=== PATIENT | male | born 1955 | race Caucasian/White ===

== ENCOUNTER 2019-10-03 09:05 | Outpatient (CLI) | payer OTHER, SELFPAY ==
[2019-10-06 18:52] LABS: H pylori, Urea Breath NOT DETECTED (NOT DETECTED)
== END 2019-10-03 09:06 | disposition home or self-care (01) ==
PROVIDERS: PCP Family Medicine; Visit Provider Family Medicine
DX: K21.9 Gastro-esophageal reflux disease without esophagitis (principal)
CPT/HCPCS: 83013

== ENCOUNTER 2019-11-04 08:57 | Emergency (ER) | payer OTHER, SELFPAY ==
--- NOTE | ~2019-11-04 | CT_ITS ---
EXAMINATION: CT abdomen pelvis wo con DATE: 11/04/2019 09:40 INDICATION: Left flank pain TECHNIQUE: Computed tomography (CT) of the abdomen and pelvis was performed without intravenous contr ast. Automated exposure control and iterative reconstruction technique were employed. The dose-length product was 197.20 mGy-cm. COMPARISON: None FINDINGS: Calcified right lower lobe nodule consistent with old granulomatous disease. Heart size is normal. No pericardial or pleural effusion. There is fluid and debris in the distal esophagus just and gastroes ophageal reflux. Liver, gallbladder, pancreas and bilateral adrenal glands are normal. Splenic calcif ications consistent with old granulomatous disease. Bilateral nephrolithiasis with stones measuring u p to 2-3 mm in the right kidney and 7 stones measuring up to 3-4 mm in the left kidney. There is an o bstructing 4 x 5 x 6 mm stone at the left ureteropelvic junction resulting in mild left hydronephrosi s and perinephric stranding. Partially decompressed bladder is unremarkable. There is prominent colon ic diverticulosis with a sigmoid and descending colon predominance. There is no adjacent inflammatory change to suggest diverticulitis. The appendix is not visualized. No pericecal inflammatory change t o suggest acute appendicitis. No free intraperitoneal gas or fluid. No pathologically enlarged abdomi nal or pelvic lymphadenopathy. There are bridging osteophytes at multiple levels in the spine, consis tent with diffuse idiopathic skeletal hyperostosis (DISH). Right intertrochanteric bone island. IMPRESSION: 1. Bilateral nephrolithiasis with obstructing 4 x 5 x 6 mm stone at the left ureteropelvic junction r esulting in mild hydronephrosis. 2. Diverticulosis. 3. Fluid distending the distal esophagus which could be related to gastroesophageal reflux. Reviewed, dictated and finalized at location A. IMPRESSION: 1. Bilateral nephrolithiasis with obstructing 4 x 5 x 6 mm stone at the left ur eteropelvic junction resulting in mild hydronephrosis. 2. Diverticulosis. 3. Fluid distending the distal esophagus which could be related to gastroesopha geal reflux.
[2019-11-04 09:09] VITALS: BP 135/80; PULSE 86; RESP 18; TEMP 36.5; O2SAT 97
[2019-11-04 09:35] LABS: Basophils Absolute Auto 0.02 K/mm3 (0.00-0.10); Basophils Percent Auto 0.2 % (0.0-1.0); Eosinophils Absolute Auto 0.03 K/mm3 (0.02-0.50); Eosinophils Percent Auto 0.3 % (1.0-6.0); Hematocrit 49.6 % (40.0-54.0); Hemoglobin 16.7 g/dL (14.0-18.0); Immature Granulocyte Absolute 0.05 K/mm3 (0.00-0.00); Immature Granulocyte Percent A 0.5 % (0.0-0.0); Lymphocytes Absolute Auto 1.32 K/mm3 (1.10-4.50); Lymphocytes Percent Auto 12.8 % (18.0-42.0); Mean Corpuscular HGB Conc 33.7 g/dL (32.0-36.0); Mean Platelet Volume 9.7 fl (8.7-11.0); Monocytes Absolute Auto 0.79 K/mm3 (0.10-0.90); Monocytes Percent Auto 7.6 % (2.0-11.0); Neutrophils Absolute Auto 8.1 K/mm3 (1.7-7.2); Neutrophils Percent Auto 78.6 % (50.0-70.0); Platelet Count Result 201 K/mm3 (150-420); Red Blood Count 5.39 M/mm3 (4.70-6.10); Red Cell Distribution Width 13.3 % (11.6-14.4); White Blood Count 10.4 K/mm3 (4.8-10.8)
[2019-11-04] MEDS: SODIUM CHLORIDE 0.9% IV 1,000 ML 999 ML IV CONT (09:35)
[2019-11-04 09:36] LABS: Add Urine Microscopic? YES; Appearance Urine Turbid (Clear); Bilirubin Urine 2+ (Negative); Blood Urine 3+ (Negative); Color Urine Yellow (Yellow); Glucose Urine UA Negative (Negative); Ketones Urine 2+ (Negative); Leukocyte Esterase Ur Negative LEU/UL (Negative); Nitrate Urine Positive (Negative); Protein Urine 1+ (Negative); Specific Grav Ur >= 1.030 (1.010-1.020); pH Urine 5.5 (5.0-8.0)
[2019-11-04] MEDS: ONDANSETRON INJ 4 MG/2 ML VIAL IV PUSH (09:42)
[2019-11-04] MEDS: KETOROLAC 30 MG/ML VIAL (*BKC) IV PUSH (09:43)
[2019-11-04 09:45] LABS: Amorphous Sediment Urine Moderate; Bacteria Urine 4+ /hpf; Calcium Oxalate Crystals Urine Present /hpf; RBC Urine 21-50 /hpf (0-2); Squamous Epithelial Cell Urine None seen /hpf (Few); WBC Urine 0-3 /hpf (0-3)
[2019-11-04 09:47] LABS: Partial Thromboplastin Time 32.3 SEC (22.3-31.6); Prothrombin Time 10.2 Seconds (9.64-11.0)
[2019-11-04 09:50] LABS: Alanine Aminotransferase 32 U/L (16-63); Alkaline Phosphatase 90 U/L (46-116); Anion Gap 12.7 mmol/L (7-16); Aspartate Amino Transferase 15 U/L (15-37); Bilirubin,Total 0.6 mg/dL (0.00-1.00); Blood Urea Nitrogen 12 mg/dL (7-18); Calcium 9.2 mg/dL (8.5-10.1); Carbon Dioxide 29 mmol/L (21-32); Chloride 104 mmol/L (98-108); Estimated CRCL calculation 44 ml/min; Estimated Glomerular Filt Rate 50; Glucose 132 mg/dL (70-99); Lipase 47 U/L (73-393); Osmolality Calculated 295 mOsm/kg (285-295); Potassium 3.7 mmol/L (3.5-5.1); Sodium 142 mmol/L (136-145); Total Protein 7.2 g/dL (6.4-8.2)
--- NOTE | 2019-11-04 10:05 | ED.BACK ---
HPI - Back Pain/Injury General Chief Complaint: Back Pain/Injury Stated Complaint: 63YO male w/ known h.o renal calculi here c/o left flank pain w/ radiation to groin since 10pm last night. Here for eval. Related Data Allergies Allergy/AdvReac Type Severity Reaction Status Date / Time No Known Allergies Allergy Verified 10/19/19 09:31 Review of Systems Review of Systems: All systems reviewed & are unremarkable except as noted in HPI and below Constitutional: Constitutional: Reports as per HPI and Reports no additional constitutional complaints Cardiovascular: Cardiovascular: Reports as per HPI and Reports no additional cardiovascular complaints Respiratory: Respiratory: Reports as per HPI and Reports no additional respiratory complaints Gastrointestinal: Gastrointestinal: Reports as per HPI and Reports no additional gastrointestinal complaints Integumentary/Breasts: Comments: Left Flank Pain Neurologic: Reports system reviewed and no additional complaints, except as documented [facility] Past Medical History Medical History (Updated 11/04/19 @ 10:13 by Daron Dickerson MD) Colon cancer screening Diverticulosis large intestine w/o perforation or abscess w/o bleeding Epigastric pain Functional burping disorder Gastroesophageal reflux disease Nausea No active medical problems Renal calculus or stone Surgical History Surgical History No history of previous surgery Family History Family History Father Diabetes mellitus Malignant neoplasm of prostate Mother Diabetes mellitus Social History Social History Smoking packs per day: 1.5 Smoking cigarettes per day: 30.0 Years smoked: 45 Smoking pack-years: 67.50 Smoking status: Current every day smoker Tobacco type: cigarettes Exam Const: General: no acute distress and alert Orientation/consciousness: patient oriented x3 HENMT: Head: normal to inspection Neck: Neck: normal visual inspection Chest: Chest palpation & inspection: normal inspection of the chest Resp: Effort & Inspection: normal respiratory effort Auscultation: clear to auscultation bilaterally Cardio: Rate: regular rate Rhythm: regular rhythm GI: Auscultation: normal bowel sounds : General: Yes CVA tenderness on the left Skin: General skin exam: normal color Neuro: General: patient oriented x3, moves all extremities and no focal motor deficits Extrem: General: normal to inspection Course Course Emergency Course: Patient admits to improvement in Pain after toradol. HE is comfortable attempting outpt treatment w/ f/u with urology. Vital Signs Vital signs: Vital Signs Temperature 97.7 F 11/04/19 09:09 Pulse Rate 86 11/04/19 09:09 Respiratory Rate 18 11/04/19 09:09 Blood Pressure 135/80 11/04/19 09:09 Pulse Oximetry 97 11/04/19 09:09 Temperature 97.7 F 11/04/19 09:09 Pulse Rate 86 11/04/19 09:09 Respiratory Rate 18 11/04/19 09:09 Blood Pressure 135/80 11/04/19 09:09 Pulse Oximetry 97 11/04/19 09:09 MDM - Back Pain/Injury Differential Diagnosis Differential diagnosis: Likely strain of lumbar region and renal colic Medical Records Attestation: I reviewed the patient's medical records. Lab Data Attestation: I reviewed the patient's lab results. Result diagrams: 11/04/19 09:29 11/04/19 09:29 Labs: Lab Results 11/04/19 11/04/19 11/04/19 Range/Units 09:29 09:29 09:29 WBC 10.4 (4.8-10.8) K/mm3 RBC 5.39 (4.70-6.10) M/mm3 Hgb 16.7 (14.0-18.0) g/dL Hct 49.6 (40.0-54.0) % MCV 92.0 (78.0-102.0) fL MCH 31.0 (27.0-31.0) pg MCHC 33.7 (32.0-36.0) g/dL RDW 13.3 (11.6-14.4) % Plt Count 201 (150-420) K/mm3 MPV 9.7 (8.7-11.0) fl Immature Gran % (Auto) 0.5 H (0.0-0.0)
[2019-11-04] MEDS: TAMSULOSIN HCL 0.4 MG CAPSULE PO (10:19)
[2019-11-04 10:26] VITALS: BP 133/75; PULSE 88; RESP 18; TEMP 36.6; O2SAT 98
== END 2019-11-04 10:35 | disposition home or self-care (01) ==
PROVIDERS: Emergency Provider Family Medicine; PCP Family Medicine
DX: N20.0 Calculus of kidney (principal)
CPT/HCPCS: 36415; 74176; 80053; 81001; 83690; 85025; 85610; 85730; 87086; 87088; 96361; 96374; 96375; 99283; 99284; A9270; J1885; J2405; J7030

== ENCOUNTER 2022-02-25 12:34 | Emergency (ER) | payer OTHER, SELFPAY ==
--- NOTE | ~2022-02-25 | XR_ITS ---
EXAMINATION: XR chest 1V portable DATE: 02/25/2022 12:58 INDICATION: Dyspnea. Cough. Shortness of breath. TECHNIQUE: A single frontal view of the chest was obtained. COMPARISON: CT abdomen and pelvis 11/04/2019 FINDINGS: There are airspace opacities in the lower lung zones, left worse than right. No pleural eff usion or pneumothorax. The heart size is normal. There is a right subclavian port with tip in superio r vena cava. IMPRESSION: 1. Airspace opacities in the lower lung zones, left worse than right, consistent with atelectasis brandie kimi pneumonia. Reviewed, dictated and finalized at location A. IMPRESSION: 1. Airspace opacities in the lower lung zones, left worse than right, consisten t with atelectasis versus pneumonia.
[2022-02-25 12:44] VITALS: BP 127/79; PULSE 78; RESP 16; TEMP 36.4; O2SAT 96
--- NOTE | 2022-02-25 12:44 | ECG_ITS ---
Measurements Intervals [place] Rate: 71 P: 77 MO: 136 QRS: 46 QRSD: 134 T: 47 QT: 390 QTc: 424 Interpretive Statements SINUS RHYTHM INDETERMINATE AXIS RIGHT BUNDLE BRANCH BLOCK ABNORMAL ECG NO PREVIOUS ECG AVAILABLE FOR COMPARISON Electronically Signed On 02-25-2022 16:21:25 CDT by Morales Pedroza M.D.
[2022-02-25 12:49] VITALS: BP 127/79; PULSE 78; RESP 16; TEMP 36.4; O2SAT 96
[2022-02-25 13:08] LABS: Basophils Absolute Auto 0.02 K/mm3 (0.00-0.10); Basophils Percent Auto 0.3 % (0.0-1.0); Eosinophils Absolute Auto 0.05 K/mm3 (0.02-0.50); Eosinophils Percent Auto 0.7 % (1.0-6.0); Hematocrit 35.2 % (37.0-46.0); Hemoglobin 11.2 g/dL (12.4-15.3); Immature Granulocyte Absolute 0.05 K/mm3 (0.00-0.00); Immature Granulocyte Percent A 0.7 % (0.0-0.0); Lymphocytes Absolute Auto 1.65 K/mm3 (1.10-4.50); Lymphocytes Percent Auto 22.1 % (18.0-42.0); Mean Corpuscular HGB Conc 31.8 g/dL (32.0-36.0); Mean Corpuscular Hemoglobin 29.2 pg (27.0-31.0); Mean Corpuscular Volume 91.7 fL (78.0-102.0); Mean Platelet Volume 8.6 fl (8.7-11.0); Monocytes Absolute Auto 1.02 K/mm3 (0.10-0.90); Monocytes Percent Auto 13.7 % (2.0-11.0); Neutrophils Absolute Auto 4.7 K/mm3 (1.7-7.2); Neutrophils Percent Auto 62.5 % (50.0-70.0); Platelet Count Result 348 K/mm3 (150-420); Red Blood Count 3.84 M/mm3 (4.70-6.10); Red Cell Distribution Width 14.5 % (11.6-14.4); White Blood Count 7.5 K/mm3 (4.8-10.8)
[2022-02-25 13:36] LABS: Alanine Aminotransferase 18 U/L (16-63); Albumin Level 2.6 g/dL (3.4-5.0); Alkaline Phosphatase 101 U/L (46-116); Anion Gap 6 mmol/L (8-16); Aspartate Amino Transferase 10 U/L (15-37); Bilirubin,Total 0.2 mg/dL (0.00-1.00); Blood Urea Nitrogen 15 mg/dL (7-18); Calcium 8.5 mg/dL (8.5-10.1); Carbon Dioxide 30 mmol/L (21-32); Chloride 104 mmol/L (98-108); Estimated CRCL calculation 63 ml/min; Estimated Glomerular Filt Rate > 60; Glucose 90 mg/dL (70-99); NT Pro B Type Natriuretic Pept 551 pg/mL (0-125); Osmolality Calculated 290 mOsm/kg (285-295); Potassium 3.5 mmol/L (3.5-5.1); Sodium 140 mmol/L (136-145); Total Protein 6.8 g/dL (6.4-8.2)
[2022-02-25 13:37] LABS: Troponin I 10.4 ng/L (0.00-60.4)
[2022-02-25 13:41] LABS: Influenza A QL RT-PCR Negative (Negative); Influenza B QL RT-PCR Negative (Negative); SARS-CoV-2 RNA PCR Negative (Negative)
--- NOTE | 2022-02-25 13:51 | ED.GENADULT ---
HPI - General Adult General Chief complaint: Upper Respiratory Infection Stated complaint: congestion/runny nose/ possible pneumonia Time Seen by Provider: 02/25/22 12:37 History of Present Illness HPI narrative: Edd is a 66M with a PMH of GERD, diverticulosis and stomach cancer s/p surgery and currently undergoing chemo that presented to the ER feeling run down. For the last few days he has been fatigued, had body aches, sleepy, had a cough and some SOB. There has been no CP, or lightheadedness. His last chemo was 2 weeks ago. Related Data Home Medications Medication Instructions Recorded Confirmed gabapentin 100 mg capsule 100 mg PO TID 02/25/22 02/25/22 Allergies Allergy/AdvReac Type Severity Reaction Status Date / Time No Known Allergies Allergy Verified 02/25/22 12:53 Review of Systems Review of Systems: All systems reviewed & are unremarkable except as noted in HPI and below PMFSH Past Medical History Medical History Colon cancer screening Diverticulosis large intestine w/o perforation or abscess w/o bleeding Epigastric pain Functional burping disorder Gastroesophageal reflux disease Nausea No active medical problems Renal calculus or stone Surgical History Surgical History No history of previous surgery Family History Family History Father Diabetes mellitus Malignant neoplasm of prostate Mother Diabetes mellitus Social History Social History Smoking packs per day: 1.5 Smoking cigarettes per day: 30.0 Years smoked: 45 Smoking pack-years: 67.50 Smoking status: Current every day smoker Tobacco type: cigarettes Exam Const: General: healthy appearing and no acute distress Nutritional Appearance: well nourished Orientation/consciousness: patient oriented x3 HENMT: Head: normal to inspection Ears: external ears normal Face/Nose/Sinus: Normal external nose present Face and sinus: normal facial exam Eyes: Conjunctivae: conjunctivae normal Neck: Neck: normal visual inspection Chest: Chest palpation & inspection: normal inspection of the chest Resp: Effort & Inspection: normal respiratory effort Other: Bibasilar crackles Cardio: Rate: regular rate Rhythm: regular rhythm GI: GI Palp: Yes Soft to palpation, No Tenderness to palpation present (GI) and No Guarding due to palpation present (GI) Back/Spine/Pelvis: Back: no CVA tenderness Skin: General skin exam: normal color Neuro: General: patient oriented x3 and moves all extremities Cranial nerves: Yes Nystagmus not present Psych: Mental Status: mental status grossly normal Affect: normal affect Course Vital Signs Vital signs: Vital Signs Temperature 97.6 F 02/25/22 12:44 Pulse Rate 78 02/25/22 12:44 Respiratory Rate 16 02/25/22 12:44 Blood Pressure 127/79 02/25/22 12:44 Pulse Oximetry 96 02/25/22 12:44 Oxygen Delivery Room Air 02/25/22 12:44 Temperature 97.6 F 02/25/22 12:49 Pulse Rate 78 02/25/22 12:49 Respiratory Rate 16 02/25/22 12:49 Blood Pressure 127/79 02/25/22 12:49 Pulse Oximetry 96 02/25/22 12:49 Oxygen Delivery Room Air 02/25/22 12:49 Medical Decision Making Vital Signs Vital Signs: Vital Signs Temperature 97.6 F 02/25/22 12:44 Pulse Rate 78 02/25/22 12:44 Respiratory Rate 16 02/25/22 12:44 Blood Pressure 127/79 02/25/22 12:44 Pulse Oximetry 96 02/25/22 12:44 Oxygen Delivery Room Air 02/25/22 12:44 Temperature 97.6 F 02/25/22 12:49 Pulse Rate 78 02/25/22 12:49 Respiratory Rate 16 02/25/22 12:49 Blood Pressure 127/79 02/25/22 12:49 Pulse Oximetry 96 02/25/22 12:49 Oxygen Delivery Room Air 02/25/22 12:49 Lab Data Result diagrams: 02/25/22 13:03
[2022-02-25] MEDS: levoFLOXacin TAB 500 MG, levoFLOXacin TAB 250 MG 750 MG PO (14:03)
[2022-02-25 14:21] VITALS: BP 120/82; PULSE 59; RESP 16; TEMP 36.4; O2SAT 94
== END 2022-02-25 14:22 | disposition home or self-care (01) ==
PROVIDERS: Emergency Provider Family Medicine
DX: J18.9 Pneumonia, unspecified organism (principal); Z20.822 Contact with and (suspected) exposure to COVID-19; R06.02 Shortness of breath
CPT/HCPCS: 36415; 71045; 80053; 83880; 84484; 85025; 87502; 93005; 99284; A9270; U0003; U0005

== ENCOUNTER 2022-03-23 02:52 | Emergency (ER) | payer OTHER, SELFPAY ==
--- NOTE | ~2022-03-23 | XR_ITS ---
EXAMINATION: XR chest 2V DATE: 03/23/2022 03:27 INDICATION: Right back pain. Cough. TECHNIQUE: Frontal and lateral views of the chest were obtained. COMPARISON: Chest single view 02/25/22, CT abdomen and pelvis 11/04/2019 FINDINGS: There are mild airspace opacities in right mid and upper lung zones. No pleural effusion or pneumothorax. The heart size is normal. There is a right subclavian port with tip in superior vena c berta. IMPRESSION: 1. Mild airspace opacities in right mid and upper lung zones, consistent with atelectasis/scarring ve rsus pneumonia. Reviewed, dictated and finalized at location A. [employer] IMPRESSION: 1. Mild airspace opacities in right mid and upper lung zones, consistent with a telectasis/scarring versus pneumonia.
[2022-03-23 02:52] VITALS: BP 130/72; PULSE 71; RESP 16; TEMP 36.2; O2SAT 100
--- NOTE | 2022-03-23 03:00 | PC.NURSE ---
ERP phoned to update on new pt. ERP orders CBC, CMP, CRP, and Mg lab tests. ERP also orders a 2V Chest X-ray. RN verbally confirms the orders and orders are placed.
[2022-03-23 03:20] LABS: Hematocrit 34.3 % (37.0-46.0); Mean Corpuscular HGB Conc 32.1 g/dL (32.0-36.0); Mean Corpuscular Hemoglobin 29.4 pg (27.0-31.0); Mean Corpuscular Volume 91.7 fL (78.0-102.0); Mean Platelet Volume 8.4 fl (8.7-11.0); Platelet Count Result 256 K/mm3 (150-420); Red Blood Count 3.74 M/mm3 (4.70-6.10); White Blood Count 7.2 K/mm3 (4.8-10.8)
[2022-03-23 03:42] LABS: Alanine Aminotransferase 24 U/L (16-63); Albumin Level 2.9 g/dL (3.4-5.0); Alkaline Phosphatase 136 U/L (46-116); Anion Gap 2 mmol/L (8-16); Aspartate Amino Transferase 17 U/L (15-37); Bilirubin,Total 0.2 mg/dL (0.00-1.00); Blood Urea Nitrogen 15 mg/dL (7-18); Calcium 8.2 mg/dL (8.5-10.1); Carbon Dioxide 32 mmol/L (21-32); Chloride 104 mmol/L (98-108); Estimated CRCL calculation 73 ml/min; Estimated Glomerular Filt Rate > 60; Glucose 111 mg/dL (70-99); Magnesium 1.8 mg/dL (1.8-2.4); Osmolality Calculated 287 mOsm/kg (285-295); Potassium 3.6 mmol/L (3.5-5.1); Sodium 138 mmol/L (136-145)
[2022-03-23 03:45] LABS: CRP 5.7 mg/dL (0.0-0.9)
--- NOTE | 2022-03-23 03:52 | ED.GENADULT ---
HPI - General Adult General Chief complaint: Unspecified Stated complaint: Sick Related Data Home Medications Medication Instructions Recorded Confirmed gabapentin 100 mg capsule 100 mg PO TID 02/25/22 03/23/22 Allergies Allergy/AdvReac Type Severity Reaction Status Date / Time No Known Allergies Allergy Verified 03/23/22 02:57 [facility] Past Medical History Medical History Colon cancer screening Diverticulosis large intestine w/o perforation or abscess w/o bleeding Epigastric pain Functional burping disorder Gastroesophageal reflux disease Nausea No active medical problems Renal calculus or stone Surgical History Surgical History No history of previous surgery Family History Family History Father Diabetes mellitus Malignant neoplasm of prostate Mother Diabetes mellitus Social History Social History Smoking packs per day: 1.5 Smoking cigarettes per day: 30.0 Years smoked: 45 Smoking pack-years: 67.50 Smoking status: Current every day smoker Tobacco type: cigarettes Course Vital Signs Vital signs: Vital Signs Temperature 36.2 C L 03/23/22 02:52 Pulse Rate 71 03/23/22 02:52 Respiratory Rate 16 03/23/22 02:52 Blood Pressure 130/72 03/23/22 02:52 Pulse Oximetry 100 03/23/22 02:52 Oxygen Delivery Room Air 03/23/22 02:52 Temperature 36.2 C L 03/23/22 02:52 Pulse Rate 71 03/23/22 02:52 Respiratory Rate 16 03/23/22 02:52 Blood Pressure 130/72 03/23/22 02:52 Pulse Oximetry 100 03/23/22 02:52 Oxygen Delivery Room Air 03/23/22 02:52 Medical Decision Making Vital Signs Vital Signs: Vital Signs Temperature 36.2 C L 03/23/22 02:52 Pulse Rate 71 03/23/22 02:52 Respiratory Rate 16 03/23/22 02:52 Blood Pressure 130/72 03/23/22 02:52 Pulse Oximetry 100 03/23/22 02:52 Oxygen Delivery Room Air 03/23/22 02:52 Temperature 36.2 C L 03/23/22 02:52 Pulse Rate 71 03/23/22 02:52 Respiratory Rate 16 03/23/22 02:52 Blood Pressure 130/72 03/23/22 02:52 Pulse Oximetry 100 03/23/22 02:52 Oxygen Delivery Room Air 03/23/22 02:52 Lab Data Result diagrams: 03/23/22 03:13 03/23/22 03:13 Labs: Lab Results 03/23/22 03/23/22 03/23/22 Range/Units 03:13 03:13 03:13 WBC 7.2 (4.8-10.8) K/mm3 RBC 3.74 L (4.70-6.10) M/mm3 Hgb 11.0 L (12.4-15.3) g/dL Hct 34.3 L (37.0-46.0) % MCV 91.7 (78.0-102.0) fL MCH 29.4 (27.0-31.0) pg MCHC 32.1 (32.0-36.0) g/dL RDW 16.0 H (11.6-14.4) % Plt Count 256 (150-420) K/mm3 MPV 8.4 L (8.7-11.0) fl Sodium 138 (136-145) mmol/L Potassium 3.6 (3.5-5.1) mmol/L Chloride 104 (98-108) mmol/L Carbon Dioxide 32 (21-32) mmol/L Anion Gap 2 L (8-16) mmol/L BUN 15 (7-18) mg/dL Creatinine 0.71 (0.70-1.30) mg/dL Estim Creat Clear Calc 73 ml/min Estimated GFR > 60 (59 - ) Glucose 111 H (70-99) mg/dL Calculated Osmolality 287 (285-295) mOsm/kg Calcium 8.2 L (8.5-10.1) mg/dL Magnesium 1.8 (1.8-2.4) mg/dL Total Bilirubin 0.2 (0.00-1.00) mg/dL AST 17 (15-37) U/L ALT 24 (16-63) U/L Alkaline Phosphatase 136 H (46-116) U/L C-Reactive Protein 5.7 H (0.0-0.9) mg/dL Total Protein 6.0 L (6.4-8.2) g/dL Albumin 2.9 L (3.4-5.0) g/dL Discharge Plan Discharge Prescriptions: No Action hydrocodone-acetaminophen [[place]] 5-325 mg tablet 1 tablet PO Q6H PRN (Reason: pain) Qty: 20 0RF gabapentin 100 mg Capsule 100 mg PO TID Follow-up/Referrals: UNKNOWN,DOCTOR [Primary Care Provider] -
--- NOTE | 2022-03-23 04:05 | ED.URI ---
HPI - URI/Sore Throat General Chief Complaint: Unspecified Stated Complaint: Sick Time Seen by Provider: 03/23/22 04:00 Source: patient and RN notes reviewed Mode of arrival: ambulatory Limitations: no limitations History of Present Illness HPI Narrative: patient states he woke up about 2 hours prior to arrival and was having some bilateral back pain similar to when he had a pneumonia here 3 weeks ago. He says he has had mild cough and having little bit of phlegm. He denies any fever but is having some chills. Says the phlegm is clear. Denies any difficulty breathing denies any chest pain. He says when he got his antibiotic last time he was here it cleared up the similar back pain right away. MD elicited complaint: cough Onset (ago): hour(s) (2) Consistency: constant Severity: moderate Description of mucous: clear Able to tolerate fluids by mouth: Yes Exacerbating factors: nothing Relieving factors: nothing Associated symptoms: chills and other (thoracic back pain) Treatments prior to arrival: none Related Data Home Medications Medication Instructions Recorded Confirmed gabapentin 100 mg capsule 100 mg PO TID 02/25/22 03/28/22 Allergies Allergy/AdvReac Type Severity Reaction Status Date / Time No Known Allergies Allergy Verified 03/28/22 08:08 Review of Systems Review of Systems: All systems reviewed & are unremarkable except as noted in HPI and below Constitutional: Constitutional: Denies fever(s) Cardiovascular: Cardiovascular: Denies chest pain Respiratory: Respiratory: Denies dyspnea [facility] Past Medical History Medical History (Updated 03/29/22 @ 00:00 by Ngoc Poole) Colon cancer screening Diverticulosis large intestine w/o perforation or abscess w/o bleeding Epigastric pain Functional burping disorder Gastroesophageal reflux disease 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 mellitus Malignant neoplasm of prostate Mother Diabetes mellitus Social History Social History Smoking packs per day: 1.5 Smoking cigarettes per day: 30.0 Years smoked: 45 Smoking pack-years: 67.50 Smoking status: Current every day smoker Tobacco type: cigarettes Exam Const: General: healthy appearing, no acute distress and alert Nutritional Appearance: well nourished and thin Orientation/consciousness: patient oriented x3 Limitations: no limitations HENMT: Head: normal to inspection Ears: external ears normal Eyes: Conjunctivae: conjunctivae normal Pupils: Equal, round and reactive pupils present EOM: EOMs intact bilaterally Neck: Neck: normal visual inspection Resp: Effort & Inspection: normal respiratory effort Auscultation: clear to auscultation bilaterally, no rales, no rhonchi and no wheezes Cardio: Rate: regular rate Rhythm: regular rhythm GI: GI Palp: Yes Soft to palpation and No Tenderness to palpation present (GI) Auscultation: normal bowel sounds Back/Spine/Pelvis: Cervical Spine: cervical ROM normal Thoracic/Lumbar Spine: thoraco-lumbar ROM normal and No thoracic spinal tenderness Skin: General skin exam: normal color Rashes: no rashes Neuro: General: patient oriented x3, moves all extremities, no focal motor deficits and CN's II-XI intact bilaterally Speech: normal speech Gait exam (Neuro): Normal gait present Extrem: General: normal to inspection and no clubbing, cyanosis or edema Psych: Mental Status: mental status grossly normal Affect: normal affect Attitude: cooperative Course Vital Signs Vital signs: Vital Signs Temperature 36.2 C L 03/23/22 02:52 Pulse Rate 71 11
[2022-03-23 06:38] VITALS: BP 110/60; PULSE 86; RESP 16; TEMP 36.9; O2SAT 97
== END 2022-03-23 06:51 | disposition home or self-care (01) ==
PROVIDERS: Emergency Provider Emergency Medicine
DX: J18.9 Pneumonia, unspecified organism (principal); F17.200 Nicotine dependence, unspecified, uncomplicated; K21.9 Gastro-esophageal reflux disease without esophagitis
CPT/HCPCS: 36415; 71046; 80053; 83735; 85027; 86140; 99283

== ENCOUNTER 2022-03-28 07:54 | Emergency (ER) | payer OTHER, SELFPAY ==
--- NOTE | ~2022-03-28 | CT_ITS ---
EXAMINATION: CT diagnostic chest wo con DATE: 03/28/2022 08:41 INDICATION: Chest pain under ribs. TECHNIQUE: Computed tomography (CT) of the chest was performed without intravenous contrast. Automate d exposure control and iterative reconstruction technique were employed. Exam dose: 162.11 mGy-cm to carol exam DLP. COMPARISON: 03/23/2022 PA and lateral chest FINDINGS: Right Port-A-Cath catheter. Moderately prominent emphysematous changes of the lungs. There is an 8 x 11.9 mm moderately thick-walled cavitary lesion in the posterior right apical region. There is focal infiltrate or atelectasis in the dependent aspect of the right upper lobe. There is mild patchy left lower lobe infiltrate. Normal heart size. No thoracic aortic aneurysm. No hilar or mediastinal mass lesion or lymphadenopath y is detected. Old pulmonary granulomatous disease is noted on the right. Multiple calcified splenic granulomas are noted as well. Mild sliding hiatal hernia. Postoperative change of the stomach. Bilateral nephrolithiasis. Diffuse idiopathic skeletal hyperostosis of the thoracic spine. Degenerative changes of the cervical and lumbar spine. No suspicious osteolytic or osteoblastic lesions. IMPRESSION: 8 x 11.9 mm cavitary lesion in the posterior right apical area; differential diagnosis i ncludes infection, metastatic or primary lung cancer Emphysema Mild infiltrate or atelectasis, dependent right upper lobe and left lower lobe Right Port-A-Cath catheter Reviewed, dictated and finalized at [facility]. Reviewed, dictated and finalized at [facility]. ER JOINER IMPRESSION: 8 x 11.9 mm cavitary lesion in the posterior right apical area; di fferential diagnosis includes infection, metastatic or primary lung cancer Emphysema Mild infiltrate or atelectasis, dependent right upper lobe and left lower lobe Right Port-A-Cath catheter
[2022-03-28 08:02] VITALS: BP 128/64; PULSE 94; RESP 16; TEMP 36.7; O2SAT 99
--- NOTE | 2022-03-28 08:12 | ECG_ITS ---
Measurements Intervals [place] Rate: 76 P: 83 RI: 140 QRS: -12 QRSD: 134 T: 25 QT: 396 QTc: 447 Interpretive Statements SINUS RHYTHM VENTRICULAR PREMATURE COMPLEX RIGHT BUNDLE BRANCH BLOCK BASELINE ARTIFACT- I, III, AVR, AVL, AVF, V1-V6 ABNORMAL ECG COMPARED TO ECG 02/25/2022 13:03:43 NO SIGNIFICANT CHANGES Electronically Signed On 03-28-2022 10:03:22 [facility] by Amilcar Garcia D.O.
[2022-03-28] MEDS: ONDANSETRON HCL ODT 4 MG TABLET PO (08:20)
[2022-03-28] MEDS: ASPIRIN 325 MG ENTERIC TABLET PO (08:21)
[2022-03-28] MEDS: MORPHINE SULFATE (*CRX) 4 MG/ML INJ IM (08:21)
[2022-03-28 08:33] LABS: Basophils Absolute Auto 0.03 K/mm3 (0.00-0.10); Basophils Percent Auto 0.3 % (0.0-1.0); Eosinophils Absolute Auto 0.05 K/mm3 (0.02-0.50); Eosinophils Percent Auto 0.6 % (1.0-6.0); Hematocrit 34.7 % (37.0-46.0); Hemoglobin 10.6 g/dL (12.4-15.3); Immature Granulocyte Absolute 0.02 K/mm3 (0.00-0.00); Immature Granulocyte Percent A 0.2 % (0.0-0.0); Lymphocytes Absolute Auto 1.68 K/mm3 (1.10-4.50); Lymphocytes Percent Auto 19.4 % (18.0-42.0); Mean Corpuscular HGB Conc 30.5 g/dL (32.0-36.0); Mean Corpuscular Volume 95.1 fL (78.0-102.0); Mean Platelet Volume 8.5 fl (8.7-11.0); Monocytes Percent Auto 10.4 % (2.0-11.0); Neutrophils Percent Auto 69.1 % (50.0-70.0); Platelet Count Result 291 K/mm3 (150-420); Red Blood Count 3.65 M/mm3 (4.70-6.10); Red Cell Distribution Width 15.9 % (11.6-14.4); White Blood Count 8.7 K/mm3 (4.8-10.8)
[2022-03-28 08:51] LABS: Alanine Aminotransferase 29 U/L (16-63); Albumin Level 2.9 g/dL (3.4-5.0); Alkaline Phosphatase 157 U/L (46-116); Anion Gap 7 mmol/L (8-16); Aspartate Amino Transferase 25 U/L (15-37); Bilirubin,Total 0.3 mg/dL (0.00-1.00); Blood Urea Nitrogen 15 mg/dL (7-18); Calcium 8.6 mg/dL (8.5-10.1); Carbon Dioxide 29 mmol/L (21-32); Chloride 105 mmol/L (98-108); Estimated Glomerular Filt Rate > 60; Glucose 135 mg/dL (70-99); Osmolality Calculated 294 mOsm/kg (285-295); Potassium 3.6 mmol/L (3.5-5.1); Sodium 141 mmol/L (136-145); Total Protein 6.2 g/dL (6.4-8.2); Troponin I 11.1 ng/L (0.00-60.4)
[2022-03-28 08:53] LABS: Lactic Acid Reflex 1.5 mmol/L (0.4-2.0)
--- NOTE | 2022-03-28 09:37 | ED.GENADULT ---
HPI - General Adult General Chief complaint: Unspecified Stated complaint: Rib pain Time Seen by Provider: 03/28/22 07:57 Source: patient and RN notes reviewed Mode of arrival: ambulatory Limitations: no limitations History of Present Illness complaint: right and left lateral ribs painful Onset (ago): day(s) (3) Location: chest Radiation: non-radiation Severity: moderate Severity scale (1-10): 7 Quality: aching Pain Consistency: constant Exacerbating factors: movement Associated symptoms: cough Treatments prior to arrival: none Related Data Home Medications Medication Instructions Recorded Confirmed gabapentin 100 mg capsule 100 mg PO TID 02/25/22 03/28/22 Allergies Allergy/AdvReac Type Severity Reaction Status Date / Time No Known Allergies Allergy Verified 03/28/22 08:08 Review of Systems Review of Systems: All systems reviewed & are unremarkable except as noted in HPI and below Constitutional: Constitutional: Reports no additional constitutional complaints Eyes: Eyes: Reports no additional eye complaints ENT: Reports system reviewed and no additional complaints, except as documented Cardiovascular: Cardiovascular: Reports no additional cardiovascular complaints Respiratory: Respiratory: Reports no additional respiratory complaints Gastrointestinal: Gastrointestinal: Reports no additional gastrointestinal complaints Musculoskeletal: Musculoskeletal: Reports no additional musculoskeletal complaints Integumentary/Breasts: Skin/Breast: Reports system reviewed and no additional complaints, except as docu Neurologic: Reports system reviewed and no additional complaints, except as documented Psychiatric: Psychiatric: Reports no additional psychiatric complaints Endocrine: Endocrine: Reports no additional endocrine complaints Hematologic/Lymphatic: Hematologic/Lymphatic: Reports no additional hematologic/lymphatic complaints Allergic/Immunologic: Allergic/Immunologic: Reports no additional allergic/immunologic complaints ON LICENSE OF [facility] Past Medical History Medical History Colon cancer screening Diverticulosis large intestine w/o perforation or abscess w/o bleeding Epigastric pain Functional burping disorder Gastroesophageal reflux disease 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 mellitus Malignant neoplasm of prostate Mother Diabetes mellitus Social History Social History Smoking packs per day: 1.5 Smoking cigarettes per day: 30.0 Years smoked: 45 Smoking pack-years: 67.50 Smoking status: Current every day smoker Tobacco type: cigarettes Exam Const: General: no acute distress and well nourished Nutritional Appearance: well nourished Orientation/consciousness: patient oriented x3 Limitations: no limitations HENMT: Head: normal to inspection Ears: external ears normal, TM's normal bilaterally and EAC's normal Face/Nose/Sinus: Normal external nose present, Normal nares present, normal facial exam and sinuses nontender Face and sinus: normal facial exam and sinuses nontender Mouth: Yes Normal oral and palatal mucosa present and Yes moist mucous membranes Teeth and gingiva: dentition normal Throat: posterior oropharynx normal Eyes: Conjunctivae: conjunctivae normal Pupils: Equal, round and reactive pupils present EOM: EOMs intact bilaterally Neck: Neck: normal visual inspection, no lymphadenopathy and no meningeal signs Chest: Chest palpation & inspection: normal inspection of the chest Resp: Effort & Inspection: normal respiratory effort
[2022-03-28 10:06] VITALS: BP 134/70; PULSE 78; RESP 16; TEMP 36.7; O2SAT 100
--- NOTE | 2022-03-28 10:09 | PC.NURSE ---
patient provided printed prescription for tramadol to take with him to pharmacy of choosing.
== END 2022-03-28 10:10 | disposition home or self-care (01) ==
PROVIDERS: Emergency Provider Emergency Medicine
DX: R09.1 Pleurisy (principal); R91.1 Solitary pulmonary nodule; J18.9 Pneumonia, unspecified organism; F17.200 Nicotine dependence, unspecified, uncomplicated
CPT/HCPCS: 36415; 71250; 80053; 83605; 84484; 85025; 93005; 96372; 99284; A9270; J2270

== ENCOUNTER 2022-07-18 12:51 | Emergency (ER) | payer MEDICARE, OTHER, SELFPAY ==
--- NOTE | ~2022-07-18 | CT_ITS ---
EXAMINATION: CTA chest PE protocol DATE: 07/18/2022 14:24 INDICATION: Dyspnea with elevated D-dimer TECHNIQUE: Computed tomography angiography (CTA) of the chest was performed with 100 mL Omnipaque-350 intravenous contrast timed to evaluate the pulmonary arteries. Coronal maximum intensity projection 3D-reconstructions were created by the technologist. The dose-length product (DLP) was 168.37 mGy-cm. Automated exposure control and iterative reconstruction technique were employed. COMPARISON: CT chest 03/28/2022. CT abdomen pelvis 11/04/2019. FINDINGS: Implanted right chest port, terminating at the cavoatrial junction. Lung parenchyma and airways: Worsened subsegmental sized area of cystic atelectasis and severe bronch ial wall thickening in the right upper lung. Severe emphysematous change. Peripheral tree-in-bud and reticular opacities bilaterally, slightly improved. Biapical pleural thickening.. Pleura: Unremarkable. Thoracic inlet, axillae and chest wall: Diffuse subcutaneous edema. Mild cachexia that. Thoracic aorta: Normal. Mediastinum: Hiatal hernia. Sutures at the GE junction. Heart and pericardium: Normal. Coronary artery calcifications: Mild. Upper abdomen: Portal versus biliary dilation. Extensive periportal edema. Mesenteric edema. Small vo lume ascites. Bones: No acute osseous finding. Pulmonary arteries: Study quality: Adequate. No pulmonary emboli detected. IMPRESSION: 1. No CT evidence of acute pulmonary embolus. Tree-in-bud opacities as can be seen with atypical infe ction, ABPA, airways disease, and aspiration. Right upper lobe focus of presumably chronic infectiou s/inflammatory bronchial wall thickening and cystic bronchiectasis. Severe emphysematous change. 2. Possible cirrhosis/portal hypertension with severe periportal edema. Intra and extrahepatic bile d uct dilation. Significant subcutaneous and mesenteric edema. Reviewed, dictated and finalized at location [facility]. IMPRESSION: 1. No CT evidence of acute pulmonary embolus. Tree-in-bud opacities as can be s een with atypical infection, ABPA, airways disease, and aspiration. Right uppe r lobe focus of presumably chronic infectious/inflammatory bronchial wall thick ening and cystic bronchiectasis. Severe emphysematous change. 2. Possible cirrhosis/portal hypertension with severe periportal edema. Intra a nd extrahepatic bile duct dilation. Significant subcutaneous and mesenteric kel ma.
--- NOTE | ~2022-07-18 | XR_ITS ---
XR chest 2V 07/18/2022 13:41 Indication: Bilateral chest wall pain Procedure: 2 view chest Comparison: 03/23/2022 Findings: Heart size normal. The lungs are hyperinflated which is consistent with, but not diagnostic of chronic obstructive pulmonary disease. No focal air space disease, pulmonary edema, pleural effus ion or suspected pneumothorax. There is focal asymmetry at the right apex. Cannot exclude underlying mass. Impression: 1: Focal asymmetry at the right apex. Cannot exclude underlying apical mass. Reviewed, dictated and finalized at location [facility]. Impression: 1: Focal asymmetry at the right apex. Cannot exclude underlying apical mass.
[2022-07-18 12:52] VITALS: BP 147/83; PULSE 68; RESP 19; TEMP 36.3; O2SAT 100
--- NOTE | 2022-07-18 13:03 | ECG_ITS ---
Measurements Intervals Antonito Rate: 62 P: 83 CT: 136 QRS: 39 QRSD: 143 T: 64 QT: 439 QTc: 448 Interpretive Statements SINUS RHYTHM ATRIAL PREMATURE COMPLEX RIGHT BUNDLE BRANCH BLOCK BASELINE ARTIFACT- I, III, AVL, V3-V4 ABNORMAL ECG COMPARED TO ECG 03/28/2022 08:57:01 NO SIGNIFICANT CHANGES Electronically Signed On 07-18-2022 21:48:45 CDT by Amilcar Garcia D.O.
[2022-07-18 13:09] VITALS: O2SAT 100
[2022-07-18] MEDS: SODIUM CHLORIDE 0.9% IV 1,000 ML 999 ML IV CONT (13:25)
[2022-07-18] MEDS: KETOROLAC 30 MG/ML VIAL (*BKC) IV PUSH (13:26)
[2022-07-18 13:27] LABS: Basophils Absolute Auto 0.03 K/mm3 (0.00-0.10); Basophils Percent Auto 0.4 % (0.0-1.0); Eosinophils Absolute Auto 0.04 K/mm3 (0.02-0.50); Eosinophils Percent Auto 0.5 % (1.0-6.0); Hematocrit 34.8 % (37.0-46.0); Hemoglobin 11.3 g/dL (12.4-15.3); Immature Granulocyte Absolute 0.07 K/mm3 (0.00-0.00); Immature Granulocyte Percent A 0.8 % (0.0-0.0); Lymphocytes Absolute Auto 1.85 K/mm3 (1.10-4.50); Mean Corpuscular HGB Conc 32.5 g/dL (32.0-36.0); Mean Corpuscular Hemoglobin 29.4 pg (27.0-31.0); Mean Corpuscular Volume 90.6 fL (78.0-102.0); Mean Platelet Volume 9.5 fl (8.7-11.0); Monocytes Absolute Auto 0.71 K/mm3 (0.10-0.90); Monocytes Percent Auto 8.5 % (2.0-11.0); Neutrophils Absolute Auto 5.7 K/mm3 (1.7-7.2); Neutrophils Percent Auto 67.8 % (50.0-70.0); Platelet Count Result 219 K/mm3 (150-420); Red Blood Count 3.84 M/mm3 (4.70-6.10); Red Cell Distribution Width 16.9 % (11.6-14.4); White Blood Count 8.4 K/mm3 (4.8-10.8)
[2022-07-18 13:42] LABS: INR 0.9; Partial Thromboplastin Time 29.1 SEC (23.90-30.70); Prothrombin Time 10.3 Seconds (9.50-12.10)
[2022-07-18 13:44] LABS: D Dimer 0.72 mg/L (0.19-0.50)
--- NOTE | 2022-07-18 13:44 | PC.NURSE ---
elevated d-dimer at 0.72, erp is notified.
[2022-07-18 13:49] LABS: Alanine Aminotransferase 26 U/L (16-63); Albumin Level 2.3 g/dL (3.4-5.0); Alkaline Phosphatase 236 U/L (46-116); Anion Gap 5 mmol/L (8-16); Aspartate Amino Transferase 21 U/L (15-37); Bilirubin,Total 0.4 mg/dL (0.00-1.00); Blood Urea Nitrogen 11 mg/dL (7-18); Carbon Dioxide 31 mmol/L (21-32); Chloride 102 mmol/L (98-108); Estimated CRCL calculation 75 ml/min; Estimated Glomerular Filt Rate > 60; Glucose 125 mg/dL (70-99); Lactic Acid Reflex 1.3 mmol/L (0.4-2.0); Magnesium 1.8 mg/dL (1.8-2.4); NT Pro B Type Natriuretic Pept 2405 pg/mL (0-125); Osmolality Calculated 286 mOsm/kg (285-295); Potassium 3.1 mmol/L (3.5-5.1); Sodium 138 mmol/L (136-145); Total Protein 5.6 g/dL (6.4-8.2); Troponin I 10.4 ng/L (0.00-60.4)
[2022-07-18 14:03] LABS: Influenza A QL RT-PCR Negative (Negative); Influenza B QL RT-PCR Negative (Negative); SARS-CoV-2 RNA PCR Negative (Negative)
--- NOTE | 2022-07-18 14:13 | ED.URI ---
HPI - URI/Sore Throat General Chief Complaint: Upper Respiratory Infection Stated Complaint: left side pain Time Seen by Provider: 07/18/22 12:56 Source: patient Mode of arrival: ambulatory Limitations: no limitations History of Present Illness HPI Narrative: this is a 66-year-old gentleman with a history of esophageal and stomach cancer with some And metastatic areas on the liver and spine sees Oncology and has received chemotherapy is last chemo was a few days ago and subsequently developed some pain with deep inspiration on the left side of his chest with a mild nonproductive cough denies any shortness of breath no abdominal pain no nausea vomiting no fever chills. Patient denies having COPD but is a long-time smoker. MD elicited complaint: cough Onset (ago): day(s) Consistency: constant Severity: moderate Related Data Home Medications Medication Instructions Recorded Confirmed gabapentin 100 mg capsule 100 mg PO TID 02/25/22 07/18/22 Allergies Allergy/AdvReac Type Severity Reaction Status Date / Time No Known Allergies Allergy Verified 07/18/22 13:10 Review of Systems Review of Systems: All systems reviewed & are unremarkable except as noted in HPI and below PMFSH Past Medical History Medical History Colon cancer screening Diverticulosis large intestine w/o perforation or abscess w/o bleeding Epigastric pain Functional burping disorder Gastroesophageal reflux disease 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 mellitus Malignant neoplasm of prostate Mother Diabetes mellitus Social History Social History Smoking packs per day: 1.5 Smoking cigarettes per day: 30.0 Years smoked: 45 Smoking pack-years: 67.50 Smoking status: Current every day smoker Tobacco type: cigarettes Living arrangements: alone Exam Const: General: healthy appearing Nutritional Appearance: well nourished Orientation/consciousness: patient oriented x3 Limitations: no limitations HENMT: Head: normal to inspection Ears: external ears normal Face and sinus: normal facial exam Mouth: Yes Normal oral and palatal mucosa present Eyes: Conjunctivae: conjunctivae normal Pupils: Equal, round and reactive pupils present EOM: EOMs intact bilaterally Neck: Neck: normal visual inspection Chest: Chest palpation & inspection: normal inspection of the chest Resp: Effort & Inspection: normal respiratory effort Cardio: Rate: regular rate Rhythm: regular rhythm GI: GI Palp: Yes Soft to palpation Auscultation: normal bowel sounds : General: Yes bladder normal to palpation Urinary Catheter: Urinary Catheter: patent and draining Back/Spine/Pelvis: Back: no CVA tenderness Skin: General skin exam: normal color Rashes: no rashes Neuro: General: patient oriented x3 and moves all extremities Extrem: General: normal to inspection Psych: Mental Status: mental status grossly normal Affect: normal affect Course Course Emergency Course: patient received IV Toradol IV fluids and x-ray performed the chest and had an elevated D-dimer and CTA was performed Vital Signs Vital signs: Vital Signs Temperature 36.3 C L 07/18/22 12:52 Pulse Rate 68 07/18/22 12:52 Respiratory Rate 19 07/18/22 12:52 Blood Pressure 147/83 H 07/18/22 12:52 Pulse Oximetry 100 07/18/22 12:52 Oxygen Delivery Room Air 07/18/22 12:52 Temperature 36.3 C L 07/18/22 12:52 Pulse Rate 68 07/18/22 12:52 Respiratory Rate 19 07/18/22 12:52 Blood Pressure 147/83 H 07/18/22 12:52 Puls
[2022-07-18 14:15] LABS: RSV RNA, RT-PCR Negative (Negative)
--- NOTE | 2022-07-18 15:27 | PC.NURSE ---
1515 PT FELL IN HALLWAY GOING TO BATHROOM STATES HIS LEFT LEG GIVES HIM TROUBLE PT STATES HE DID NOT HIT HEAD AND NOTHING HURT PT GOT UP WITH HELP OF NURSE AND TECH PT WALKED TO BATHROOM AND BACK TO HIS ROOM WITH NO COMPLAINTS PT DISCHARGED HOME
[2022-07-18 15:40] VITALS: BP 129/69; PULSE 64; RESP 18; TEMP 37; O2SAT 99
--- NOTE | 2022-07-21 09:27 | PC.NURSE ---
PRELIMINARY BLOOD CULTURE X1 AEROBIC BOTTLE : GRAM POSITIVE COCCI IN CLUSTER ISOLATED. PER DR ROTHMAN, TO AWAIT SENSITIVITIES, PT WAS ALREADY CONTACTED AND REPORTED HE WAS DOING WELL AND IS TAKING AZITHROMYCIN.
== END 2022-07-18 15:40 | disposition home or self-care (01) ==
PROVIDERS: Emergency Provider Emergency Medicine
DX: J40 Bronchitis, not specified as acute or chronic (principal); I50.9 Heart failure, unspecified; J43.8 Other emphysema; C16.9 Malignant neoplasm of stomach, unspecified; C78.7 Secondary malignant neoplasm of liver and intrahepatic bile duct; F17.210 Nicotine dependence, cigarettes, uncomplicated; Z20.822 Contact with and (suspected) exposure to COVID-19
CPT/HCPCS: 36415; 71046; 71275; 80053; 83605; 83735; 83880; 84484; 85025; 85380; 85610; 85730; 87040; 87147; 87637; 93005; 96360; 96372; 99284; J1885; J7030; Q9967

== ENCOUNTER 2022-07-24 08:30 | Emergency (ER) | payer MEDICARE, OTHER, SELFPAY ==
--- NOTE | ~2022-07-24 | XR_ITS ---
EXAMINATION: XR chest 1V portable, XR thoracic spine 2V DATE: 07/24/2022 09:46 INDICATION: Left paraspinal posterior left chest pain. TECHNIQUE: 1. Single PA view of the chest was obtained. 2. AP, lateral and lateral swimmer's views of the thoracic spine were obtained. COMPARISON: Chest CT dated 07/18/2022 FINDINGS: Chest: Hyperexpansion of lungs consistent with moderate emphysema better appreciated on prior CT. Opacities in the right upper lobe superimposed over the anterior first rib corresponding to thick-walled cavita ry lung disease on prior CT which has significantly progressed since 07/18/2022 and 03/28/2022, more r apidly than would be seen with malignancy and most likely infectious in etiology. Additional mild opa cities along the cephalad aspect of the right major fissure and also evident on the most recent prior CT which could represent either atelectasis or additional infection. Left lung remains clear. No pul monary edema, pleural effusion or pneumothorax. The cardiomediastinal silhouette is normal. Right sub clavian central venous port catheter with distal tip near the superior cavoatrial junction. Thoracic spine: Alignment is normal. Vertebral body heights disc heights are normal. There are bridging osteophytes a t multiple levels in the thoracic spine consistent with diffuse idiopathic skeletal hyperostosis (DIS H). IMPRESSION: 1. Emphysema with thick-walled cavitary lung disease at the right apex most likely infectious in etio logy given the rapid progression in the 4 month interval between the [address] studies. 2. Bridging osteophytes throughout much of the thoracic spine consistent with diffuse idiopathic skel etal hyperostosis (DISH). Reviewed, dictated and finalized at location A. IMPRESSION: 1. Emphysema with thick-walled cavitary lung disease at the right apex most lik melissa infectious in etiology given the rapid progression in the 4 month interval between the [address] studies. 2. Bridging osteophytes throughout much of the thoracic spine consistent with d iffuse idiopathic skeletal hyperostosis (DISH).
[2022-07-24 08:30] VITALS: BP 158/73; PULSE 67; RESP 18; TEMP 35.7; O2SAT 99
[2022-07-24 08:41] VITALS: BP 158/73; PULSE 67; RESP 18; TEMP 35.7; O2SAT 99
--- NOTE | 2022-07-24 08:57 | ED.BACK ---
HPI - Back Pain/Injury General Chief Complaint: Back Pain/Injury Stated Complaint: back pain Time Seen by Provider: 07/24/22 08:49 Source: patient Mode of arrival: ambulatory History of Present Illness HPI Narrative: 66-year-old male, smoker with a history of GERD, gastric cancer with Mets to the liver, spine on chemo, status post gastrectomy, kidney stones, diverticulosis, lung lesions presented to the ER on 07/18/2022 for left pleuritic chest pain. The patient had a chest x-ray and a CTA which was negative for PE and did not show any other findings. The patient was noted to have bronchitis and treated with antibiotics and steroids. The patient presents today with -- severe pain in the left thoracic paraspinal region. Pain is made worse by movement and by deep breathing. The patient does not have any fever. Minimal cough with sputum production. No history of trauma. No pain is noted in the lumbar or cervical region. The patient has had a history of recurrent kidney stones. MD elicited complaint: back pain Onset (ago): day(s) ( Off and on for the past 10 days.) Timing: intermittent Severity: severe Similar Symptoms Previously: Yes Quality: aching Location: thoracic spine Radiation: none Exacerbating factors: movement and deep breaths Relieving factors: immobilization Associated symptoms: denies other symptoms Treatments prior to arrival: other medications Related Data Home Medications Medication Instructions Recorded Confirmed gabapentin 100 mg capsule 100 mg PO TID 02/25/22 07/24/22 Allergies Allergy/AdvReac Type Severity Reaction Status Date / Time No Known Allergies Allergy Verified 07/24/22 08:40 Review of Systems Review of Systems: All systems reviewed & are unremarkable except as noted in HPI and below Constitutional: Constitutional: Reports as per HPI, Reports no additional constitutional complaints and Reports weakness Eyes: Eyes: Reports as per HPI and Reports no additional eye complaints ENT: Reports system reviewed and no additional complaints, except as documented and Reports as per HPI Cardiovascular: Cardiovascular: Reports as per HPI and Reports no additional cardiovascular complaints Respiratory: Respiratory: Reports as per HPI and Reports no additional respiratory complaints Gastrointestinal: Gastrointestinal: Reports as per HPI and Reports no additional gastrointestinal complaints Genitourinary: Genitourinary: Reports no additional male genitourinary complaints and Reports as per HPI Musculoskeletal: Musculoskeletal: Reports no additional musculoskeletal complaints, Reports as per HPI and Reports back pain Integumentary/Breasts: Skin/Breast: Reports system reviewed and no additional complaints, except as docu and Reports as per HPI Neurologic: Reports system reviewed and no additional complaints, except as documented and Reports as per HPI Psychiatric: Psychiatric: Reports no additional psychiatric complaints and Reports as per HPI Endocrine: Endocrine: Reports no additional endocrine complaints and Reports as per HPI Hematologic/Lymphatic: Hematologic/Lymphatic: Reports no additional hematologic/lymphatic complaints and Reports as per HPI Allergic/Immunologic: Allergic/Immunologic: Reports no additional allergic/immunologic complaints and Reports as per HPI [facility] Past Medical History Medical History Colon cancer screening Diverticulosis large intestine w/o perforation or abscess w/o bleeding Epigastric pain Functional burping disorder Gastroesophageal reflux disease 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
[2022-07-24] MEDS: ONDANSETRON HCL ODT 4 MG TABLET PO (09:44)
[2022-07-24] MEDS: HYDROmorphone HCL INJ (*CRX) 2 MG/ML VIAL 0.5 MG IM (09:45)
[2022-07-24 10:01] LABS: Appearance Urine Clear (Clear); Bilirubin Urine Negative (Negative); Blood Urine Negative (Negative); Color Urine Yellow (Yellow); Glucose Urine UA Negative (Negative); Ketones Urine Negative (Negative); Leukocyte Esterase Ur Negative (Negative); Nitrate Urine Negative (Negative); Protein Urine Negative (Negative); Urobilinogen Urine 0.2 mg/dL (0.2-1.0)
[2022-07-24 10:02] LABS: Add Urine Microscopic? NO
[2022-07-24 10:39] VITALS: BP 161/81; PULSE 59; RESP 16; TEMP 36.6; O2SAT 100
== END 2022-07-24 10:42 | disposition home or self-care (01) ==
PROVIDERS: Emergency Provider Internal Medicine Critical Care Medicine
DX: M48.14 Ankylosing hyperostosis [Forestier], thoracic region (principal); J98.4 Other disorders of lung; C16.9 Malignant neoplasm of stomach, unspecified; C78.7 Secondary malignant neoplasm of liver and intrahepatic bile duct; F17.210 Nicotine dependence, cigarettes, uncomplicated
CPT/HCPCS: 71045; 72070; 81003; 96372; 99283; A9270; J1170

== ENCOUNTER 2022-08-07 13:20 | Emergency (ER) | payer OTHER, MEDICARE, SELFPAY ==
--- NOTE | ~2022-08-07 | CT_ITS ---
EXAMINATION: CT thoracic lumbar wo con DATE: 08/07/2022 14:29 INDICATION: Mid to low back pain. TECHNIQUE: Computed tomography (CT) of the thoracic and lumbar spine was performed without intravenou s contrast. Automated exposure control and iterative reconstruction technique were employed. The dose -length product was 320.76 mGy-cm. COMPARISON: Chest CT 07/18/2022, CT abdomen and pelvis 11/04/2019 FINDINGS: CT THORACIC SPINE: There is moderate emphysema. There is scarring in the upper lobes, right worse th an left. There is a right subclavian port with tip in proximal right atrium. There are surgical sandoval es in the stomach. There is a small sliding hiatal hernia. There are stones in the kidneys measuring up to 5 mm on the left. Bone alignment is normal. There is mild chronic anterior wedging of T6, T11, and T12 vertebral bodies. Intervertebral disc heights are normal. There are endplate osteophytes at m any levels. There is multilevel mild facet joint osteoarthritis. No neural foraminal stenosis or cent ral canal stenosis. CT LUMBAR SPINE: There is 3 degrees levocurvature of lumbar spine. Vertebral body heights are normal. There is sclerosis in L2 vertebral body. There is a benign bone island in right ilium. Intervertebra l disc heights are normal. The following disc levels are specifically discussed: L1-L2: The disc does not extend beyond the endplate margin. There is mild bilateral facet joint osteo arthritis. There is no neural foraminal stenosis. There is no central canal stenosis. L2-L3: The disc is bulging. There is mild bilateral facet joint osteoarthritis. There is mild bilater al neural foraminal stenosis. There is no central canal stenosis. L3-L4: The disc is bulging. There is mild bilateral facet joint osteoarthritis. There is moderate rig ht and mild left neural foraminal stenosis. There is mild central canal stenosis. L4-L5: The disc is bulging. There is severe right and mild left facet joint osteoarthritis. There is moderate bilateral neural foraminal stenosis. There is mild central canal stenosis. L5-S1: The disc is bulging. There is moderate bilateral facet joint osteoarthritis. There is moderate bilateral neural foraminal stenosis. There is mild central canal stenosis. IMPRESSION: 1. Sclerosis in L2 vertebral body, consistent with metastatic disease. 2. Mild thoracic spondylosis and moderate lumbar spondylosis. Reviewed, dictated and finalized at location A.
[2022-08-07 13:20] VITALS: BP 138/88; PULSE 70; RESP 15; TEMP 36.2; O2SAT 100
--- NOTE | 2022-08-07 13:37 | ED.GENADULT ---
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 He has known metastases to the liver and spine reportedly, and possibly also to the lung. He is currently on chemotherapy, last chemotherapy session was July 13, 2022. Chemotherapy started March 2021. His chemotherapy most recently has been held pending a left lung biopsy which is due to be done in 3 days time, on 08/10/2022 in [place]. He is also due to undergo chemotherapy that day. He is on morphine MS Contin twice daily but has run out and has not been taking any morphine for the last 3 days. He has had weight loss, 10 lb in the last 3 weeks, 60 lb in the last 6 months. Only medication that he has tried to take is Tylenol ibuprofen and his gabapentin that he has. He was seen here 07/24/2022 for similar mid thoracic pain, x-rays were done that did not reveal any acute findings, see report below. A previous visit with a CT angiogram is also listed below. He comes due to continued pain in the mid aspect of his thoracic spine, right more than left, radiating throughout that area. The pain is constant. Able to ambulate but uses a cane. No chest pain. No abdominal pain. No nausea vomiting. No fevers or chills. No urinary symptoms. No other complaints. Related Data Home Medications Medication Instructions Recorded Confirmed gabapentin 100 mg capsule 100 mg PO TID 02/25/22 08/07/22 Allergies Allergy/AdvReac Type Severity Reaction Status Date / Time No Known Allergies Allergy Verified 07/24/22 08:40 Review of Systems Review of Systems: All systems reviewed & are unremarkable except as noted in HPI and below Constitutional: Constitutional: Reports as per HPI, Reports no additional constitutional complaints, Denies chills, Denies excessive sweating, Denies fatigue, Denies fever(s), Denies headache(s) and Reports weakness ( Overall weakness) Eyes: Eyes: Reports as per HPI, Reports no additional eye complaints, Denies change in vision and Denies photophobia ENT: Reports system reviewed and no additional complaints, except as documented, Reports as per HPI, Denies dysphagia, Denies vertigo, Denies dizziness, Denies headache(s), Denies lip swelling, Denies nasal congestion, Denies sore throat, Denies throat swelling and Denies tongue swelling Cardiovascular: Cardiovascular: Reports as per HPI, Reports no additional cardiovascular complaints, Denies chest pain, Denies syncope, Denies rapid heart rate and Denies dyspnea Respiratory: Respiratory: Reports as per HPI, Reports no additional respiratory complaints, Denies chest congestion, Denies cough, Denies dyspnea and Denies wheezing Gastrointestinal: Gastrointestinal: Reports as per HPI, Reports no additional gastrointestinal complaints, Denies abdominal pain, Denies constipation, Denies dysphagia, Denies diarrhea, Reports nausea (with dry heaves) and Denies vomiting Genitourinary: Genitourinary: Reports as per HPI, Denies hematuria, Denies oliguria, Denies dysuria, Denies urinary frequency, Denies urinary incontinence and Denies urinary urgency Musculoskeletal: Musculoskeletal: Reports no additional musculoskeletal complaints, Reports back pain ( the midthoracic region of the upper back, not lower back), Denies myalgias, Denies arthralgias, Denies joint swelling and Denies numbness Integumentary/Breasts: Skin/Breast: Reports system reviewed and no additional complaints, except as docu, Denies pruritus, Denies erythema, Denies rash and Denies skin ulcer Neurologic: Reports system reviewed and no additional complaints, except as documented, Reports as per HPI, Denies confusion, Denies vertigo, Denies dizziness, Denies syncope, Denies
[2022-08-07 14:08] LABS: Basophils Absolute Auto 0.03 K/mm3 (0.00-0.10); Basophils Percent Auto 0.4 % (0.0-1.0); Eosinophils Absolute Auto 0.06 K/mm3 (0.02-0.50); Eosinophils Percent Auto 0.7 % (1.0-6.0); Hematocrit 33.9 % (37.0-46.0); Immature Granulocyte Absolute 0.03 K/mm3 (0.00-0.00); Immature Granulocyte Percent A 0.4 % (0.0-0.0); Lymphocytes Absolute Auto 1.95 K/mm3 (1.10-4.50); Lymphocytes Percent Auto 24.3 % (18.0-42.0); Mean Corpuscular HGB Conc 32.4 g/dL (32.0-36.0); Mean Corpuscular Hemoglobin 29.7 pg (27.0-31.0); Mean Corpuscular Volume 91.6 fL (78.0-102.0); Mean Platelet Volume 8.7 fl (8.7-11.0); Monocytes Absolute Auto 0.75 K/mm3 (0.10-0.90); Monocytes Percent Auto 9.4 % (2.0-11.0); Neutrophils Absolute Auto 5.2 K/mm3 (1.7-7.2); Neutrophils Percent Auto 64.8 % (50.0-70.0); Platelet Count Result 240 K/mm3 (150-420); Red Cell Distribution Width 16.5 % (11.6-14.4)
[2022-08-07] MEDS: MORPHINE SULFATE (*CRX) 15 MG TABCR PO (14:08)
[2022-08-07] MEDS: MORPHINE SULFATE (*CRX) 4 MG/ML INJ IV PUSH (14:09)
[2022-08-07 14:22] LABS: INR 0.9; Partial Thromboplastin Time 31.6 SEC (23.90-30.70); Prothrombin Time 10.2 Seconds (9.50-12.10)
[2022-08-07] MEDS: ONDANSETRON INJ 4 MG/2 ML VIAL IV PUSH (14:31)
[2022-08-07 14:37] LABS: Alanine Aminotransferase 113 U/L (16-63); Albumin Level 2.3 g/dL (3.4-5.0); Alkaline Phosphatase 743 U/L (46-116); Anion Gap 5 mmol/L (8-16); Aspartate Amino Transferase 106 U/L (15-37); Bilirubin,Total 0.4 mg/dL (0.00-1.00); Blood Urea Nitrogen 12 mg/dL (7-18); Calcium 8.2 mg/dL (8.5-10.1); Carbon Dioxide 30 mmol/L (21-32); Chloride 106 mmol/L (98-108); Estimated CRCL calculation 83 ml/min; Estimated Glomerular Filt Rate > 60; Glucose 90 mg/dL (70-99); Magnesium 1.7 mg/dL (1.8-2.4); Osmolality Calculated 291 mOsm/kg (285-295); Potassium 3.5 mmol/L (3.5-5.1); Sodium 141 mmol/L (136-145); Total Protein 5.1 g/dL (6.4-8.2)
[2022-08-07 14:39] VITALS: BP 170/66; PULSE 65; RESP 18; O2SAT 100
[2022-08-07 14:58] VITALS: BP 141/78; PULSE 68; RESP 18; TEMP 36.6; O2SAT 100
== END 2022-08-07 15:05 | disposition home or self-care (01) ==
PROVIDERS: Emergency Provider Emergency Medicine
DX: M54.6 Pain in thoracic spine (principal); C78.7 Secondary malignant neoplasm of liver and intrahepatic bile duct; F17.210 Nicotine dependence, cigarettes, uncomplicated; Z76.0 Encounter for issue of repeat prescription; Z79.891 Long term (current) use of opiate analgesic; Z79.899 Other long term (current) drug therapy
CPT/HCPCS: 36415; 72128; 72131; 80053; 83735; 85025; 85610; 85730; 96374; 96375; 99284; A9270; J2270; J2405